=== PATIENT | male | born 1950 | race Two or more races ===

== ENCOUNTER 2022-11-12 07:46 | Day surgery (SDC) | payer OTHER, MEDICARE ==
[~2022-11-12] VITALS: Ht 172.7 cm; Wt 82.6 kg
[~2022-11-12 07:46] MED LIST: AMIO200T33 PO; APIX5TAB PO; MAGN400T40 OR; METO-289 PO; SACU1TAB PO
[2022-11-12] MEDS ORDERED: MIDAZOLAM HCL 2MG/2ML 2ml VIAL (1mg/ml) IV ONE (08:30)
[2022-11-12] MEDS ORDERED: LIDOCAINE VISCOUS 2% 15ML UD PO ONE (08:30)
[2022-11-12] MEDS ORDERED: fentaNYL CITRATE 100 MCG/2 ML VL IV ONE (08:30)
[2022-11-12] MEDS ORDERED: diphenhdrAMINE HCL 50 MG/1 ML VL IV ONE (08:49)
[2022-11-12] MEDS ORDERED: fentaNYL CITRATE 100 MCG/2 ML VL ONE (08:57)
[2022-11-12] MEDS ORDERED: diphenhdrAMINE HCL 50 MG/1 ML VL ONE (08:57)
== END 2022-11-12 10:30 | disposition home or self-care (01) ==
LOC: CATH 07:46
PROVIDERS: ATTEND Internal Medicine
DX: I48.91 Unspecified atrial fibrillation (principal); I08.3 Combined rheumatic disorders of mitral, aortic and tricuspid valves
CPT/HCPCS: 92960; 93005; 93312; J1200; J2250; J3010; 99152